=== PATIENT | male | born 1945 | race African-American/Black ===

== ENCOUNTER 2019-07-18 18:29 | Inpatient (IN) ==
[2019-07-18] MEDS ORDERED: LACTATED RINGERS 500 ML IV ONE (19:30)
[2019-07-18 19:36] LABS: Basophils % 0.2 % (0.0-0.8); Hemoglobin 6.6 GM/DL (14.0-18.0)
[2019-07-18 19:52] LABS: Albumin 3.5 G/DL (3.4-5.0); Bilirubin,Total 0.8 MG/DL (0.2-1.0); Calcium 8.7 MG/DL (8.5-10.1); Osmolality,Calculated 385.7 MOS/KG (273-304); Total Protein 10.6 G/DL (6.4-8.3)
[2019-07-18 19:56] LABS: Eosinophils % 0.1 % (0.00-10.9); Hematocrit 29.9 VOL% (42.0-52.0); Immature Granulocytes % 1.5 %; Lymphocytes # 0.3 10*3/uL (1.4-4.0); Lymphocytes % 1.9 % (21.2-54.2); Mean Corpuscular HGB Conc 22.1 GM/DL (32-36); Monocytes % 13.2 % (1.7-12.7); NRBC # 0.32 10*3/uL; Neutrophils % 83.1 % (38.7-73.9); Platelet Count 271 T/CUMM (130-400); Red Blood Count 4.46 MC/CUMM (3.8-5.5); Red Cell Distribution Width 24.4 % (9.3-17.3); White Blood Count 13.5 T/CUMM (4-12)
[2019-07-18 19:59] LABS: Band Neutrophils 14 % (0-10); Lymphocytes 3 % (20-55); Nucleated Red Blood Cells 1 (0-5); Segmented Neutrophils 73 % (50-85); Total Cells Counted 100
[2019-07-18 20:00] LABS: Elliptocytes Few; Hypochromasia 1+
[2019-07-18 20:01] LABS: Anisocytosis 1+; Platelet Estimate Adequate; Polychromasia Few; Target Cells Few
[2019-07-18] MEDS ORDERED: LACTATED RINGERS IV ONE (20:13)
[2019-07-18] MEDS ORDERED: MEROPENEM 1,000 MG in SODIUM CHLORIDE 0.9% 100 ML IV STA (20:14)
[2019-07-18 20:15] LABS: ABG Base Excess -15.4 MMOL/L (-2.5-2.5); ABG HCO3 12.2 MMOL/L (20-26); ABG PCO2 24.3 MM HG (35-48); ABG PH 7.251 (7.35-7.45); ABG PO2 69.9 MM HG (80-95); ABG TCO2 10.4 MMOL/L (23-27); Allen Test Positive
[2019-07-18 20:29] LABS: Apearance,Urine Slightly Hazy (Clear); Bilirubin,Urine Negative (Negative); Blood, Urine Small mg/dL (Negative); Glucose,Urine (UA) >=500 mg/dL (Negative); Hyaline Casts,Urine 16 /LPF (0-3); Ketones,Urine 5 mg/dL (Negative); Mucus,Urine Occasional /LPF (Occasional); Nitrite,Urine Negative (Negative); Protein,Urine 100 MG/DL; RBC,Urine 1 /HPF (0-4); Squamous Epithelial Cell,Urine Occasional /HPF (0-10); Urine Color Yellow (Yellow); Urine Specific Gravity 1.023 (1.001-1.035); Urine Urobilinogen < 2.0 EU/DL (0.2-1.0); WBC,Urine 1 /HPF (0-6)
[2019-07-18] MEDS: INSULIN REGULAR DRIP 100 ML IV PRN (20:56)
[2019-07-18] MEDS ORDERED: MAGNESIUM SULF RIDER 4 GM in PREMIX 1 EACH IV PRN (21:19)
[2019-07-18] MEDS ORDERED: SODIUM BICARB INJ 100 MEQ in STERILE WATER INJ 400 ML IV PRN (21:19)
[2019-07-18] MEDS ORDERED: SODIUM PHOSPHATE INJ 19.3 MMOL in SODIUM CHLORIDE 0.9% 250 ML IV PRN (21:19)
[2019-07-18] MEDS ORDERED: GLUCAGON 1 MG VIAL IM PRN (21:19)
[2019-07-18] MEDS ORDERED: DEXTROSE 10% 250 ML BAG IV PRN ×2 (21:19)
[2019-07-18] MEDS ORDERED: MAGNESIUM SULF RIDER 2 GM in PREMIX 1 EACH IV PRN (21:19)
[2019-07-18] MEDS ORDERED: DEXTROSE 50% 25 GM/50 ML VIAL IV PRN (21:19)
[2019-07-18] MEDS ORDERED: SODIUM CHLORIDE 0.9% 1,000 ML IV SCH ×2 (21:21→23:20)
[2019-07-18] MEDS ORDERED: SODIUM CHLORIDE 0.9% 1,000 ML IV PRN (21:30)
[2019-07-18] MEDS ORDERED: INSULIN REGULAR 100 UNIT/ML IV STA (21:38)
[2019-07-18] MEDS ORDERED: LEVOFLOXACIN INJ 500 MG in PREMIX 1 EACH IV ONE (23:00)
[2019-07-19 01:38] LABS: Calcium 7.8 MG/DL (8.5-10.1); Osmolality,Calculated 375.3 MOS/KG (273-304)
[2019-07-19] MEDS: PIPERACILLIN/TAZOBACTAM 3,375 MG in SODIUM CHLORIDE 0.9% 100 ML IV SCH ×2 (03:40→15:25)
[2019-07-19] MEDS ORDERED: ONDANSETRON 4 MG/2 ML VIAL IV PRN (04:52)
[2019-07-19] MEDS ORDERED: PROMETHAZINE 25 MG/1 ML VIAL IV PRN (04:52)
[2019-07-19] MEDS ORDERED: PROMETHAZINE INJ 25 MG in SODIUM CHLORIDE 0.9% 50 ML IV PRN (05:01)
[2019-07-19] MEDS: SODIUM CHLOR 0.45% KCL 20 MEQ 20 MEQ/1,000 ML BAG IV SCH ×5 (05:06→22:23)
[2019-07-19] MEDS: SODIUM CHLORIDE 0.45% 1,000 ML IV SCH ×4 (05:26→22:24)
[2019-07-19 07:49] LABS: Basophils # 0.1 10*3/uL (0.0-0.2); Basophils % 0.2 % (0.0-0.8); Hematocrit 30.9 VOL% (42.0-52.0); Hemoglobin 8.3 GM/DL (14.0-18.0); Immature Granulocytes % 1.7 %; Immature Granulocytes Absolute 0.69 #; Lymphocytes # 0.6 10*3/uL (1.4-4.0); Lymphocytes % 1.4 % (21.2-54.2); Mean Corpuscular HGB Conc 26.9 GM/DL (32-36); Mean Corpuscular Volume 69.8 FL (87-102); Monocytes % 7.8 % (1.7-12.7); NRBC # 0.38 10*3/uL; Neutrophils % 88.9 % (38.7-73.9); Platelet Count 120 T/CUMM (130-400); Red Blood Count 4.43 MC/CUMM (3.8-5.5); Red Cell Distribution Width 28.4 % (9.3-17.3)
[2019-07-19 07:52] LABS: Calcium 7.6 MG/DL (8.5-10.1); White Blood Count 41.8 T/CUMM (4-12)
[2019-07-19 08:10] LABS: Band Neutrophils 11 % (0-10); Hypochromasia 1+; Lymphocytes 3 % (20-55); Ovalocytes Slight; Segmented Neutrophils 78 % (50-85); Total Cells Counted 100
[2019-07-19 08:37] LABS: Hematocrit 31.2 VOL% (42.0-52.0); Hemoglobin 8.3 GM/DL (14.0-18.0)
[2019-07-19 14:17] LABS: Calcium 7.5 MG/DL (8.5-10.1); Osmolality,Calculated 363.9 MOS/KG (273-304)
[2019-07-19] MEDS ORDERED: AMIODARONE INJ 150 MG in DEXTROSE 5% 100 ML IV ONE (14:30)
[2019-07-19] MEDS ORDERED: AMIODARONE INJ 450 MG in DEXTROSE 5% 241 ML IV SCH ×2 (15:30→21:30)
[2019-07-19] MEDS: LORazepam 2 MG/1 ML VIAL IV PRN (16:33)
[2019-07-19 19:45] LABS: Calcium 7.1 MG/DL (8.5-10.1)
[2019-07-19] MEDS: INSULIN REGULAR DRIP 100 ML IV PRN (20:40)
[2019-07-19] MEDS: PANTOPRAZOLE 40 MG VIAL IV SCH (20:47)
[2019-07-19] MEDS: SUCRALFATE 1 GM TABLET PO SCH (21:01)
[2019-07-20 00:39] LABS: Calcium 6.9 MG/DL (8.5-10.1)
[2019-07-20] MEDS: PIPERACILLIN/TAZOBACTAM 3,375 MG in SODIUM CHLORIDE 0.9% 100 ML IV SCH (03:01)
[2019-07-20] MEDS: DEXT 5% NACL 0.45% KCL 20 MEQ 20 MEQ/1,000 ML BAG IV SCH ×2 (03:30→12:08)
[2019-07-20] MEDS: SODIUM CHLOR 0.45% KCL 20 MEQ 20 MEQ/1,000 ML BAG IV SCH ×2 (03:49→09:17)
[2019-07-20] MEDS: SODIUM CHLORIDE 0.45% 1,000 ML IV SCH ×2 (03:49→12:08)
[2019-07-20 04:29] LABS: Calcium 7.6 MG/DL (8.5-10.1); Osmolality,Calculated 344.9 MOS/KG (273-304)
[2019-07-20 04:59] LABS: Basophils # 0.1 10*3/uL (0.0-0.2); Basophils % 0.2 % (0.0-0.8); Hematocrit 26.3 VOL% (42.0-52.0); Hemoglobin 7.1 GM/DL (14.0-18.0); Immature Granulocytes % 4.9 %; Immature Granulocytes Absolute 2.04 #; Lymphocytes # 0.6 10*3/uL (1.4-4.0); Lymphocytes % 1.5 % (21.2-54.2); Mean Corpuscular Volume 68.5 FL (87-102); Monocytes % 5.5 % (1.7-12.7); NRBC # 0.34 10*3/uL; Neutrophils % 87.9 % (38.7-73.9); Red Blood Count 3.84 MC/CUMM (3.8-5.5); Red Cell Distribution Width 26.5 % (9.3-17.3)
[2019-07-20 05:00] LABS: Platelet Count 93 T/CUMM (130-400)
[2019-07-20] MEDS ORDERED: DEXTROSE 5% KCL 20 MEQ 20 MEQ/1,000 ML BAG IV SCH (05:00)
[2019-07-20 05:03] LABS: White Blood Count 41.5 T/CUMM (4-12)
[2019-07-20 05:04] LABS: Band Neutrophils 14 % (0-10); Eosinophils 1 % (0-10); Lymphocytes 1 % (20-55); Metamyelocytes 1 %; Myelocytes 2 %; Nucleated Red Blood Cells 1 (0-5); Segmented Neutrophils 77 % (50-85); Total Cells Counted 100
[2019-07-20 05:05] LABS: Hypochromasia 1+; Platelet Estimate Decreased
[2019-07-20] MEDS ORDERED: SODIUM CHLORIDE 0.9% 1,000 ML IV PRN (05:50)
[2019-07-20 08:56] LABS: Calcium 7.8 MG/DL (8.5-10.1)
[2019-07-20] MEDS: PANTOPRAZOLE 40 MG VIAL IV SCH ×2 (09:18→22:38)
[2019-07-20] MEDS: SUCRALFATE 1 GM TABLET PO SCH ×2 (09:19→12:37)
[2019-07-20 12:31] LABS: Apearance,Urine CLOUDY (Clear); Bacteria,Urine Occasional /HPF (Few); Bilirubin,Urine Negative (Negative); Blood, Urine Large mg/dL (Negative); Glucose,Urine (UA) Negative (Negative); Ketones,Urine Negative (Negative); Nitrite,Urine Negative (Negative); Protein,Urine >=500 MG/DL; RBC,Urine 24 /HPF (0-4); Urine Color Yellow (Yellow); Urine Specific Gravity 1.016 (1.001-1.035); Urine Urobilinogen < 2.0 EU/DL (0.2-1.0); WBC,Urine 11 /HPF (0-6)
[2019-07-20] MEDS: SUCRALFATE 1 GM/10 ML UDCUP NG SCH ×3 (12:35→22:38)
[2019-07-20] MEDS: ACETAMINOPHEN 325 MG/10.15 ML UDCUP PO PRN ×2 (12:36→22:45)
[2019-07-20] MEDS: SODIUM BICARB INJ 50 MEQ in DEXTROSE 5% 1,000 ML IV SCH ×2 (13:05→21:30)
[2019-07-20] MEDS: CLOTRIMAZOLE/BETAMETHASONE CREAM 15 GM TUBE TOP SCH ×3 (13:05→22:38)
[2019-07-20] MEDS: BUDESONIDE 0.5 MG/2 ML NEB RESP TX SCH ×2 (13:19→19:47)
[2019-07-20] MEDS ORDERED: FLUCONAZOLE 40 MG/ML 35 ML/BOTTLE PO ONE (14:00)
[2019-07-20] MEDS: MEROPENEM 500 MG in SODIUM CHLORIDE 0.9% 100 ML IV SCH ×2 (14:43→22:38)
[2019-07-20 17:11] LABS: Calcium 7.5 MG/DL (8.5-10.1); Osmolality,Calculated 335.2 MOS/KG (273-304)
[2019-07-20 17:24] LABS: Basophils # 0.1 10*3/uL (0.0-0.2); Basophils % 0.2 % (0.0-0.8); Immature Granulocytes % 1.8 %; Immature Granulocytes Absolute 0.82 #; Lymphocytes # 0.7 10*3/uL (1.4-4.0); Lymphocytes % 1.5 % (21.2-54.2); Mean Corpuscular HGB Conc 28.6 GM/DL (32-36); Mean Corpuscular Volume 69.7 FL (87-102); Monocytes % 3.7 % (1.7-12.7); Neutrophils % 92.8 % (38.7-73.9); Platelet Count 51 T/CUMM (130-400); Red Blood Count 4.02 MC/CUMM (3.8-5.5); Red Cell Distribution Width 26.5 % (9.3-17.3)
[2019-07-20 17:25] LABS: White Blood Count 44.5 T/CUMM (4-12)
[2019-07-20 17:51] LABS: Band Neutrophils 32 % (0-10); Lymphocytes 3 % (20-55); Metamyelocytes 8 %; Nucleated Red Blood Cells 1 (0-5); Segmented Neutrophils 54 % (50-85); Total Cells Counted 100
[2019-07-20 17:52] LABS: Anisocytosis 2+; Elliptocytes Few; Macrocytosis Slight; Microcytosis 2+; Platelet Estimate Decreased; Polychromasia 1+; Target Cells 1+
[2019-07-20 17:53] LABS: Burr Cells Slight; Hypochromasia 1+; Poikilocytosis 1+
[2019-07-20] MEDS: INSULIN REGULAR DRIP 100 ML IV PRN (19:07)
[2019-07-20] MEDS: METOPROLOL TARTRATE 5 MG/5 ML VIAL IV PRN (20:15)
[2019-07-20] MEDS: LORazepam 2 MG/1 ML VIAL IV PRN (21:25)
[2019-07-20] MEDS ORDERED: LEVOFLOXACIN INJ 250 MG in PREMIX 1 EACH IV SCH (23:00)
[2019-07-21] MEDS ORDERED: IBUPROFEN 100 MG/5 ML UDCUP PO PRN (01:33)
[2019-07-21 02:57] LABS: Calcium 7.6 MG/DL (8.5-10.1); Osmolality,Calculated 334.2 MOS/KG (273-304)
[2019-07-21 03:02] LABS: Prealbumin 3.7 MG/DL (20-40)
[2019-07-21 03:47] LABS: Basophils # 0.2 10*3/uL (0.0-0.2); Basophils % 0.3 % (0.0-0.8); Hematocrit 32.5 VOL% (42.0-52.0); Hemoglobin 9.2 GM/DL (14.0-18.0); Immature Granulocytes % 1.4 %; Immature Granulocytes Absolute 0.66 #; Lymphocytes # 0.8 10*3/uL (1.4-4.0); Lymphocytes % 1.7 % (21.2-54.2); Mean Corpuscular HGB Conc 28.3 GM/DL (32-36); Mean Corpuscular Volume 70.7 FL (87-102); Monocytes % 3.3 % (1.7-12.7); NRBC # 0.28 10*3/uL; Neutrophils % 93.3 % (38.7-73.9); Platelet Count 45 T/CUMM (130-400); Red Cell Distribution Width 26.5 % (9.3-17.3)
[2019-07-21 03:53] LABS: White Blood Count 48.3 T/CUMM (4-12)
[2019-07-21 04:00] LABS: Band Neutrophils 6 % (0-10); Eosinophils 1 % (0-10); Lymphocytes 5 % (20-55); Metamyelocytes 6 %; Myelocytes 3 %; Nucleated Red Blood Cells 1 (0-5); Segmented Neutrophils 77 % (50-85)
[2019-07-21 04:02] LABS: Elliptocytes 1+; Hypochromasia 1+; Platelet Estimate Decreased; Target Cells Few
[2019-07-21 04:08] LABS: Microcytosis 1+; Total Cells Counted 100
[2019-07-21] MEDS: SODIUM BICARB INJ 50 MEQ in DEXTROSE 5% 1,000 ML IV SCH ×3 (06:03→23:30)
[2019-07-21] MEDS: MEROPENEM 500 MG in SODIUM CHLORIDE 0.9% 100 ML IV SCH ×3 (06:03→21:54)
[2019-07-21] MEDS: SUCRALFATE 1 GM/10 ML UDCUP NG SCH ×4 (07:54→21:54)
[2019-07-21] MEDS: BUDESONIDE 0.5 MG/2 ML NEB RESP TX SCH ×2 (07:58→20:49)
[2019-07-21] MEDS: FLUCONAZOLE INJ 200 MG in PREMIX 1 EACH IV SCH (09:17)
[2019-07-21] MEDS: CLOTRIMAZOLE/BETAMETHASONE CREAM 15 GM TUBE TOP SCH ×2 (09:18→21:54)
[2019-07-21] MEDS: PANTOPRAZOLE 40 MG VIAL IV SCH ×2 (09:18→21:55)
[2019-07-21] MEDS: METOPROLOL TARTRATE 5 MG/5 ML VIAL IV PRN ×2 (10:06→14:56)
[2019-07-21] MEDS: INSULIN REGULAR DRIP 100 ML IV PRN (11:52)
[2019-07-21] MEDS ORDERED: DEXTROSE 10% 25 GM/250 ML BAG IV PRN (13:50)
[2019-07-21] MEDS: POTASSIUM CHLORIDE RIDER 10 MEQ in PREMIX 1 EACH IV PRN ×2 (16:15→17:46)
[2019-07-21] MEDS ORDERED: FUROSEMIDE 40 MG/4 ML VIAL IV ONE (16:33)
[2019-07-21] MEDS ORDERED: hydrALAZINE 20 MG/1 ML VIAL IV ONE (16:50)
[2019-07-21] MEDS: DEXTROSE 5% 1,000 ML IV SCH ×2 (17:01→23:30)
[2019-07-21] MEDS: INSULIN REGULAR 100 UNIT/ML SUBCUT SCH (18:08)
[2019-07-21] MEDS: FUROSEMIDE 40 MG/4 ML VIAL IV SCH (19:38)
[2019-07-22] MEDS: INSULIN REGULAR 100 UNIT/ML SUBCUT SCH ×6 (01:06→23:43)
[2019-07-22 02:56] LABS: Basophils # 0.1 10*3/uL (0.0-0.2); Basophils % 0.2 % (0.0-0.8); Hemoglobin 9.1 GM/DL (14.0-18.0); Immature Granulocytes % 2.4 %; Immature Granulocytes Absolute 0.89 #; Lymphocytes # 1.4 10*3/uL (1.4-4.0); Lymphocytes % 3.6 % (21.2-54.2); Mean Corpuscular HGB Conc 28.7 GM/DL (32-36); Mean Corpuscular Volume 69.4 FL (87-102); Monocytes % 0.8 % (1.7-12.7); NRBC # 0.39 10*3/uL; Red Blood Count 4.57 MC/CUMM (3.8-5.5); Red Cell Distribution Width 27.2 % (9.3-17.3); White Blood Count 37.7 T/CUMM (4-12)
[2019-07-22 03:18] LABS: Calcium 7.4 MG/DL (8.5-10.1)
[2019-07-22 03:33] LABS: Hematocrit 31.7 VOL% (42.0-52.0); Platelet Count 38 T/CUMM (130-400)
[2019-07-22 03:36] LABS: Band Neutrophils 2 % (0-10); Hypochromasia 1+; Lymphocytes 8 % (20-55); Microcytosis 1+; Platelet Estimate Decreased; Polychromasia Few; Segmented Neutrophils 90 % (50-85); Total Cells Counted 100
[2019-07-22 04:19] LABS: Calcium 7.2 MG/DL (8.5-10.1); Osmolality,Calculated 332.7 MOS/KG (273-304)
[2019-07-22] MEDS ORDERED: INSULIN REGULAR 100 UNIT/ML IV ONE (04:27)
[2019-07-22] MEDS: MEROPENEM 500 MG in SODIUM CHLORIDE 0.9% 100 ML IV SCH (06:20)
[2019-07-22] MEDS: BUDESONIDE 0.5 MG/2 ML NEB RESP TX SCH ×2 (07:06→20:30)
[2019-07-22] MEDS: FUROSEMIDE 40 MG/4 ML VIAL IV SCH ×2 (08:38→17:08)
[2019-07-22] MEDS: SODIUM BICARB INJ 50 MEQ in DEXTROSE 5% 1,000 ML IV SCH (08:38)
[2019-07-22] MEDS: PANTOPRAZOLE 40 MG VIAL IV SCH ×2 (08:39→21:51)
[2019-07-22] MEDS: FLUCONAZOLE INJ 200 MG in PREMIX 1 EACH IV SCH (08:39)
[2019-07-22] MEDS: SUCRALFATE 1 GM/10 ML UDCUP NG SCH ×4 (08:39→21:51)
[2019-07-22] MEDS: CLOTRIMAZOLE/BETAMETHASONE CREAM 15 GM TUBE TOP SCH ×2 (08:40→21:51)
[2019-07-22] MEDS ORDERED: ACETAMINOPHEN 325 MG TABLET PO PRN (12:35)
[2019-07-22] MEDS: GLIMEPIRIDE 4 MG TABLET PO SCH (13:37)
[2019-07-22] MEDS: POLYETHYLENE GLYCOL POWDER 17 GM PACK PO SCH (13:37)
[2019-07-22] MEDS: DOCUSATE SODIUM 100 MG CAPSULE PO SCH (13:37)
[2019-07-22] MEDS: MULTIVITAMIN (CENTRUM) TABLET PO SCH (13:37)
[2019-07-22] MEDS: LEVOFLOXACIN INJ 750 MG in PREMIX 1 EACH IV SCH (13:37)
[2019-07-22] MEDS: POTASSIUM CHLORIDE INJ 20 MEQ in LACTATED RINGERS 1,000 ML IV SCH ×2 (13:38→23:55)
[2019-07-22 15:16] LABS: Calcium 7.4 MG/DL (8.5-10.1); Osmolality,Calculated 324.6 MOS/KG (273-304)
[2019-07-22] MEDS: methylPREDNISolone SOD SUC 40 MG/1 ML VIAL IV SCH (20:50)
[2019-07-22] MEDS: INSULIN GLARGINE 100 UNIT/ML SUBCUT SCH (21:51)
[2019-07-23] MEDS: CLINDAMYCIN 300 MG CAPSULE PO SCH ×4 (01:15→18:22)
[2019-07-23] MEDS: INSULIN REGULAR 100 UNIT/ML SUBCUT SCH ×6 (02:49→21:21)
[2019-07-23 03:02] LABS: Basophils % 0.1 % (0.0-0.8); Hematocrit 27.2 VOL% (42.0-52.0); Hemoglobin 7.9 GM/DL (14.0-18.0); Immature Granulocytes % 4.4 %; Immature Granulocytes Absolute 0.58 #; Lymphocytes # 0.4 10*3/uL (1.4-4.0); Lymphocytes % 3.2 % (21.2-54.2); Mean Corpuscular Volume 67.5 FL (87-102); Monocytes % 2.6 % (1.7-12.7); NRBC # 0.24 10*3/uL; Neutrophils % 89.7 % (38.7-73.9); Red Blood Count 4.03 MC/CUMM (3.8-5.5); Red Cell Distribution Width 27.2 % (9.3-17.3); White Blood Count 13.3 T/CUMM (4-12)
[2019-07-23 03:05] LABS: Platelet Count 28 T/CUMM (130-400)
[2019-07-23 03:11] LABS: Calcium 7.4 MG/DL (8.5-10.1); Osmolality,Calculated 312.7 MOS/KG (273-304)
[2019-07-23 03:54] LABS: Band Neutrophils 5 % (0-10); Lymphocytes 3 % (20-55); Myelocytes 1 %; Nucleated Red Blood Cells 4 (0-5); Segmented Neutrophils 90 % (50-85); Total Cells Counted 100
[2019-07-23 03:55] LABS: Acanthocytes 1+; Anisocytosis 1+; Hypochromasia 1+; Platelet Estimate Decreased; Target Cells 2+
[2019-07-23] MEDS: BUDESONIDE 0.5 MG/2 ML NEB RESP TX SCH ×2 (07:17→19:51)
[2019-07-23] MEDS: FUROSEMIDE 40 MG/4 ML VIAL IV SCH ×2 (07:55→15:58)
[2019-07-23] MEDS: SUCRALFATE 1 GM/10 ML UDCUP NG SCH ×4 (07:55→21:24)
[2019-07-23] MEDS: methylPREDNISolone SOD SUC 40 MG/1 ML VIAL IV SCH ×2 (07:55→21:23)
[2019-07-23] MEDS: POTASSIUM CHLORIDE INJ 20 MEQ in LACTATED RINGERS 1,000 ML IV SCH ×2 (07:56→16:01)
[2019-07-23] MEDS: PANTOPRAZOLE 40 MG VIAL IV SCH ×2 (08:37→21:20)
[2019-07-23] MEDS: DOCUSATE SODIUM 100 MG CAPSULE PO SCH (08:37)
[2019-07-23] MEDS: MULTIVITAMIN (CENTRUM) TABLET PO SCH (08:37)
[2019-07-23] MEDS: GLIMEPIRIDE 4 MG TABLET PO SCH (08:37)
[2019-07-23] MEDS: POLYETHYLENE GLYCOL POWDER 17 GM PACK PO SCH (08:37)
[2019-07-23] MEDS: CLOTRIMAZOLE/BETAMETHASONE CREAM 15 GM TUBE TOP SCH ×2 (08:38→21:24)
[2019-07-23] MEDS: FLUCONAZOLE INJ 200 MG in PREMIX 1 EACH IV SCH (09:10)
[2019-07-23] MEDS ORDERED: SODIUM CHLORIDE 0.9% 1,000 ML IV PRN ×2 (12:36→12:37)
[2019-07-23] MEDS: METOPROLOL TARTRATE 5 MG/5 ML VIAL IV PRN (16:45)
[2019-07-23] MEDS: LORazepam 2 MG/1 ML VIAL IV PRN (17:35)
[2019-07-23 20:32] LABS: Basophils % 0.2 % (0.0-0.8); Eosinophils % 0.1 % (0.00-10.9); Hemoglobin 8.7 GM/DL (14.0-18.0); Immature Granulocytes Absolute 1.08 #; Lymphocytes # 0.6 10*3/uL (1.4-4.0); Lymphocytes % 5.3 % (21.2-54.2); Mean Corpuscular Volume 69.3 FL (87-102); Monocytes % 6.6 % (1.7-12.7); NRBC # 0.43 10*3/uL; Neutrophils % 77.8 % (38.7-73.9); Platelet Count 97 T/CUMM (130-400); Red Blood Count 4.33 MC/CUMM (3.8-5.5); White Blood Count 10.8 T/CUMM (4-12)
[2019-07-23 20:57] LABS: Band Neutrophils 1 % (0-10); Hypochromasia 2+; Lymphocytes 12 % (20-55); Metamyelocytes 3 %; Myelocytes 4 %; Nucleated Red Blood Cells 1 (0-5); Platelet Estimate Adequate; Segmented Neutrophils 78 % (50-85); Total Cells Counted 100
[2019-07-23 20:58] LABS: Anisocytosis Slight; Microcytosis 3+; Polychromasia 1+; Schistocytes 2+
[2019-07-23] MEDS: INSULIN GLARGINE 100 UNIT/ML SUBCUT SCH (21:22)
[2019-07-24] MEDS: CLINDAMYCIN 300 MG CAPSULE PO SCH ×5 (00:35→23:32)
[2019-07-24] MEDS: POTASSIUM CHLORIDE INJ 20 MEQ in LACTATED RINGERS 1,000 ML IV SCH ×4 (00:51→21:13)
[2019-07-24 01:47] LABS: Basophils % 0.1 % (0.0-0.8); Hematocrit 25.7 VOL% (42.0-52.0); Hemoglobin 7.4 GM/DL (14.0-18.0); Immature Granulocytes % 6.2 %; Immature Granulocytes Absolute 0.87 #; Lymphocytes # 0.5 10*3/uL (1.4-4.0); Lymphocytes % 3.7 % (21.2-54.2); Mean Corpuscular HGB Conc 28.8 GM/DL (32-36); Mean Corpuscular Volume 68.9 FL (87-102); Monocytes % 8.5 % (1.7-12.7); NRBC # 0.33 10*3/uL; Neutrophils % 81.5 % (38.7-73.9); Platelet Count 111 T/CUMM (130-400); Red Blood Count 3.73 MC/CUMM (3.8-5.5); Red Cell Distribution Width 28.6 % (9.3-17.3); White Blood Count 13.9 T/CUMM (4-12)
[2019-07-24 02:01] LABS: Calcium 7.6 MG/DL (8.5-10.1); Osmolality,Calculated 318.3 MOS/KG (273-304)
[2019-07-24] MEDS: INSULIN REGULAR 100 UNIT/ML SUBCUT SCH ×6 (02:34→23:31)
[2019-07-24 03:16] LABS: Anisocytosis 1+; Band Neutrophils 6 % (0-10); Lymphocytes 12 % (20-55); Microcytosis 3+; Nucleated Red Blood Cells 4 (0-5); Platelet Estimate Adequate; Segmented Neutrophils 76 % (50-85); Total Cells Counted 100
[2019-07-24 03:17] LABS: Hypochromasia 3+; Target Cells 1+
[2019-07-24 03:18] LABS: Polychromasia Few
[2019-07-24] MEDS: BUDESONIDE 0.5 MG/2 ML NEB RESP TX SCH ×2 (08:13→20:50)
[2019-07-24] MEDS: PANTOPRAZOLE 40 MG VIAL IV SCH ×2 (08:38→21:06)
[2019-07-24] MEDS: POLYETHYLENE GLYCOL POWDER 17 GM PACK PO SCH (08:38)
[2019-07-24] MEDS: methylPREDNISolone SOD SUC 40 MG/1 ML VIAL IV SCH ×2 (08:38→21:03)
[2019-07-24] MEDS: FUROSEMIDE 40 MG/4 ML VIAL IV SCH ×2 (08:39→16:19)
[2019-07-24] MEDS: SUCRALFATE 1 GM/10 ML UDCUP NG SCH ×4 (08:39→21:02)
[2019-07-24] MEDS: MULTIVITAMIN (CENTRUM) TABLET PO SCH (08:39)
[2019-07-24] MEDS: GLIMEPIRIDE 4 MG TABLET PO SCH (08:39)
[2019-07-24] MEDS: FLUCONAZOLE INJ 200 MG in PREMIX 1 EACH IV SCH (08:40)
[2019-07-24] MEDS: DOCUSATE SODIUM 100 MG CAPSULE PO SCH (08:40)
[2019-07-24] MEDS: CLOTRIMAZOLE/BETAMETHASONE CREAM 15 GM TUBE TOP SCH ×2 (08:42→21:09)
[2019-07-24] MEDS ORDERED: FUROSEMIDE 40 MG/4 ML VIAL IV ONE (12:34)
[2019-07-24] MEDS ORDERED: POTASSIUM CHLORIDE INJ 20 MEQ in LACTATED RINGERS 1,000 ML IV SCH (13:00)
[2019-07-24] MEDS: LEVOFLOXACIN INJ 750 MG in PREMIX 1 EACH IV SCH (13:02)
[2019-07-24] MEDS: LORazepam 2 MG/1 ML VIAL IV PRN (13:34)
[2019-07-24] MEDS: METOPROLOL TARTRATE 5 MG/5 ML VIAL IV PRN (15:06)
[2019-07-24] MEDS: INSULIN GLARGINE 100 UNIT/ML SUBCUT SCH (21:01)
[2019-07-24] MEDS: METOPROLOL TARTRATE 25 MG TABLET NG SCH (21:02)
[2019-07-25] MEDS: INSULIN REGULAR 100 UNIT/ML SUBCUT SCH ×6 (02:03→21:11)
[2019-07-25] MEDS: POTASSIUM CHLORIDE INJ 20 MEQ in LACTATED RINGERS 1,000 ML IV SCH ×3 (02:56→13:47)
[2019-07-25] MEDS: CLINDAMYCIN 300 MG CAPSULE PO SCH ×3 (06:29→17:44)
[2019-07-25] MEDS: BUDESONIDE 0.5 MG/2 ML NEB RESP TX SCH ×2 (07:30→20:20)
[2019-07-25] MEDS: SUCRALFATE 1 GM/10 ML UDCUP NG SCH ×4 (08:13→21:00)
[2019-07-25] MEDS: methylPREDNISolone SOD SUC 40 MG/1 ML VIAL IV SCH ×2 (08:13→20:58)
[2019-07-25] MEDS: FUROSEMIDE 40 MG/4 ML VIAL IV SCH ×2 (08:14→16:26)
[2019-07-25] MEDS: GLIMEPIRIDE 4 MG TABLET PO SCH (09:10)
[2019-07-25] MEDS: DOCUSATE SODIUM 100 MG CAPSULE PO SCH (09:10)
[2019-07-25] MEDS: POLYETHYLENE GLYCOL POWDER 17 GM PACK PO SCH (09:10)
[2019-07-25] MEDS: METOPROLOL TARTRATE 25 MG TABLET NG SCH ×2 (09:10→21:00)
[2019-07-25] MEDS: MULTIVITAMIN (CENTRUM) TABLET PO SCH (09:10)
[2019-07-25] MEDS: PANTOPRAZOLE 40 MG VIAL IV SCH ×2 (09:11→20:59)
[2019-07-25] MEDS: FLUCONAZOLE INJ 200 MG in PREMIX 1 EACH IV SCH (09:11)
[2019-07-25] MEDS: CLOTRIMAZOLE/BETAMETHASONE CREAM 15 GM TUBE TOP SCH ×2 (09:12→21:02)
[2019-07-25 13:58] LABS: Calcium 7.4 MG/DL (8.5-10.1); Osmolality,Calculated 312.1 MOS/KG (273-304)
[2019-07-25 14:08] LABS: Basophils % 0.1 % (0.0-0.8); Hematocrit 27.4 VOL% (42.0-52.0); Lymphocytes # 0.5 10*3/uL (1.4-4.0); Lymphocytes % 2.5 % (21.2-54.2); Mean Corpuscular HGB Conc 27.7 GM/DL (32-36)
[2019-07-25 14:32] LABS: Immature Granulocytes % 2.8 %; Immature Granulocytes Absolute 0.59 #; Mean Corpuscular Volume 71.4 FL (87-102); Monocytes % 4.9 % (1.7-12.7); NRBC # 0.11 10*3/uL; Neutrophils % 89.7 % (38.7-73.9); Platelet Count 112 T/CUMM (130-400); Red Blood Count 3.84 MC/CUMM (3.8-5.5); Red Cell Distribution Width 30.2 % (9.3-17.3); White Blood Count 20.8 T/CUMM (4-12)
[2019-07-25 14:34] LABS: Hemoglobin 7.6 GM/DL (14.0-18.0)
[2019-07-25 15:22] LABS: Band Neutrophils 7 % (0-10); Lymphocytes 4 % (20-55); Segmented Neutrophils 88 % (50-85); Total Cells Counted 100
[2019-07-25 15:23] LABS: Hypochromasia 1+; Polychromasia Slight
[2019-07-25 15:25] LABS: Platelet Estimate Adequate
[2019-07-25 15:26] LABS: Microcytosis 1+; Schistocytes Slight
[2019-07-25] MEDS ORDERED: POTASSIUM CHLORIDE INJ 20 MEQ in LACTATED RINGERS 1,000 ML IV SCH (17:30)
[2019-07-25] MEDS: INSULIN GLARGINE 100 UNIT/ML SUBCUT SCH (20:59)
[2019-07-26] MEDS: CLINDAMYCIN 300 MG CAPSULE PO SCH ×5 (00:55→23:04)
[2019-07-26] MEDS: INSULIN REGULAR 100 UNIT/ML SUBCUT SCH ×6 (01:06→23:02)
[2019-07-26] MEDS: POTASSIUM CHLORIDE INJ 20 MEQ in LACTATED RINGERS 1,000 ML IV SCH (02:19)
[2019-07-26 02:46] LABS: Basophils % 0.1 % (0.0-0.8); Hematocrit 26.3 VOL% (42.0-52.0); Immature Granulocytes Absolute 0.77 #; Lymphocytes # 0.4 10*3/uL (1.4-4.0); Lymphocytes % 1.5 % (21.2-54.2); Mean Corpuscular HGB Conc 28.1 GM/DL (32-36); Mean Corpuscular Volume 71.3 FL (87-102); Monocytes % 3.8 % (1.7-12.7); NRBC # 0.07 10*3/uL; Neutrophils % 91.6 % (38.7-73.9); Platelet Count 83 T/CUMM (130-400); Red Blood Count 3.69 MC/CUMM (3.8-5.5); Red Cell Distribution Width 30.3 % (9.3-17.3)
[2019-07-26 03:04] LABS: Hemoglobin 7.5 GM/DL (14.0-18.0)
[2019-07-26 03:07] LABS: Prealbumin 9.3 MG/DL (20-40)
[2019-07-26 03:55] LABS: Band Neutrophils 9 % (0-10); Lymphocytes 3 % (20-55); Nucleated Red Blood Cells 1 (0-5); Segmented Neutrophils 84 % (50-85); Total Cells Counted 100
[2019-07-26 03:56] LABS: Anisocytosis 1+; Hypochromasia 1+; Platelet Estimate Decreased; Target Cells Few; Tear Drop Cells Few
[2019-07-26] MEDS: BUDESONIDE 0.5 MG/2 ML NEB RESP TX SCH ×2 (08:27→19:21)
[2019-07-26] MEDS: PANTOPRAZOLE 40 MG VIAL IV SCH ×2 (09:39→22:42)
[2019-07-26] MEDS: methylPREDNISolone SOD SUC 40 MG/1 ML VIAL IV SCH ×3 (09:39→22:38)
[2019-07-26] MEDS: FUROSEMIDE 40 MG/4 ML VIAL IV SCH ×2 (09:39→17:11)
[2019-07-26] MEDS: GLIMEPIRIDE 4 MG TABLET PO SCH ×2 (09:39→17:11)
[2019-07-26] MEDS: MULTIVITAMIN LIQUID (CENTRUM) 60 ML BOTTLE PO SCH (09:40)
[2019-07-26] MEDS: DOCUSATE SODIUM 100 MG CAPSULE PO SCH (09:40)
[2019-07-26] MEDS: SUCRALFATE 1 GM/10 ML UDCUP NG SCH ×4 (09:40→22:37)
[2019-07-26] MEDS: POLYETHYLENE GLYCOL POWDER 17 GM PACK PO SCH (09:40)
[2019-07-26] MEDS: METOPROLOL TARTRATE 25 MG TABLET NG SCH ×2 (09:40→20:45)
[2019-07-26] MEDS: CLOTRIMAZOLE/BETAMETHASONE CREAM 15 GM TUBE TOP SCH ×2 (09:41→22:47)
[2019-07-26] MEDS: FLUCONAZOLE INJ 200 MG in PREMIX 1 EACH IV SCH (10:16)
[2019-07-26] MEDS: cefTRIAXone 1,000 MG in SYRINGE 1 EACH IV SCH (11:21)
[2019-07-26] MEDS: INSULIN GLARGINE 100 UNIT/ML SUBCUT SCH (22:41)
[2019-07-27] MEDS: INSULIN REGULAR 100 UNIT/ML SUBCUT SCH ×6 (03:08→22:49)
[2019-07-27 05:51] LABS: Basophils % 0.1 % (0.0-0.8); Hematocrit 28.5 VOL% (42.0-52.0); Immature Granulocytes % 2.2 %; Immature Granulocytes Absolute 0.65 #; Lymphocytes # 0.6 10*3/uL (1.4-4.0); Lymphocytes % 1.9 % (21.2-54.2); Mean Corpuscular HGB Conc 28.1 GM/DL (32-36); Mean Corpuscular Volume 71.3 FL (87-102); NRBC # 0.05 10*3/uL; Neutrophils % 90.8 % (38.7-73.9); Platelet Count 127 T/CUMM (130-400); Red Cell Distribution Width 30.8 % (9.3-17.3); White Blood Count 30.2 T/CUMM (4-12)
[2019-07-27 06:12] LABS: Albumin 1.6 G/DL (3.4-5.0); Bilirubin,Total 0.7 MG/DL (0.2-1.0); Osmolality,Calculated 311.6 MOS/KG (273-304); Total Protein 7.6 G/DL (6.4-8.3)
[2019-07-27] MEDS: CLINDAMYCIN 300 MG CAPSULE PO SCH ×3 (06:14→17:08)
[2019-07-27 06:25] LABS: Band Neutrophils 3 % (0-10); Hypochromasia 1+; Lymphocytes 2 % (20-55); Nucleated Red Blood Cells 1 (0-5); Ovalocytes Slight; Segmented Neutrophils 89 % (50-85); Target Cells Few; Total Cells Counted 100
[2019-07-27] MEDS: BUDESONIDE 0.5 MG/2 ML NEB RESP TX SCH ×2 (07:22→19:27)
[2019-07-27] MEDS: methylPREDNISolone SOD SUC 40 MG/1 ML VIAL IV SCH ×2 (09:04→21:20)
[2019-07-27] MEDS: SUCRALFATE 1 GM/10 ML UDCUP NG SCH ×4 (09:05→21:23)
[2019-07-27] MEDS: POLYETHYLENE GLYCOL POWDER 17 GM PACK PO SCH (09:05)
[2019-07-27] MEDS: FLUCONAZOLE 40 MG/ML 35 ML/BOTTLE PER TUBE SCH (09:06)
[2019-07-27] MEDS: DOCUSATE SODIUM 100 MG CAPSULE PO SCH (09:06)
[2019-07-27] MEDS: FUROSEMIDE 40 MG/4 ML VIAL IV SCH ×2 (09:10→15:16)
[2019-07-27] MEDS: GLIMEPIRIDE 4 MG TABLET PO SCH ×2 (09:11→17:08)
[2019-07-27] MEDS: PANTOPRAZOLE 40 MG VIAL IV SCH ×2 (09:17→21:22)
[2019-07-27] MEDS: MULTIVITAMIN LIQUID (CENTRUM) 60 ML BOTTLE PO SCH (09:17)
[2019-07-27] MEDS: METOPROLOL TARTRATE 25 MG TABLET NG SCH ×2 (09:17→21:23)
[2019-07-27] MEDS: CLOTRIMAZOLE/BETAMETHASONE CREAM 15 GM TUBE TOP SCH ×2 (09:19→21:24)
[2019-07-27] MEDS: cefTRIAXone 1,000 MG in SYRINGE 1 EACH IV SCH (11:41)
[2019-07-27] MEDS: INSULIN GLARGINE 100 UNIT/ML SUBCUT SCH (21:23)
[2019-07-28] MEDS: INSULIN REGULAR 100 UNIT/ML SUBCUT SCH ×6 (01:36→22:06)
[2019-07-28] MEDS: CLINDAMYCIN 300 MG CAPSULE PO SCH ×5 (01:36→23:57)
[2019-07-28 05:12] LABS: Calcium 7.8 MG/DL (8.5-10.1); Osmolality,Calculated 314.7 MOS/KG (273-304)
[2019-07-28 05:50] LABS: Basophils # 0.1 10*3/uL (0.0-0.2); Basophils % 0.2 % (0.0-0.8); Hematocrit 28.5 VOL% (42.0-52.0); Immature Granulocytes % 1.8 %; Immature Granulocytes Absolute 0.57 #; Lymphocytes # 0.4 10*3/uL (1.4-4.0); Lymphocytes % 1.3 % (21.2-54.2); Mean Corpuscular HGB Conc 28.1 GM/DL (32-36); Monocytes % 3.1 % (1.7-12.7); Neutrophils % 93.6 % (38.7-73.9); Platelet Count 98 T/CUMM (130-400); Red Blood Count 3.96 MC/CUMM (3.8-5.5); Red Cell Distribution Width 31.2 % (9.3-17.3); White Blood Count 32.2 T/CUMM (4-12)
[2019-07-28 05:54] LABS: Band Neutrophils 1 % (0-10); Hypochromasia 1+; Lymphocytes 2 % (20-55); Platelet Estimate Decreased; Segmented Neutrophils 94 % (50-85); Total Cells Counted 100
[2019-07-28] MEDS: BUDESONIDE 0.5 MG/2 ML NEB RESP TX SCH ×2 (07:21→20:18)
[2019-07-28] MEDS: SUCRALFATE 1 GM/10 ML UDCUP NG SCH ×4 (08:37→22:05)
[2019-07-28] MEDS: DOCUSATE SODIUM 100 MG CAPSULE PO SCH (08:37)
[2019-07-28] MEDS: GLIMEPIRIDE 4 MG TABLET PO SCH ×2 (08:38→17:05)
[2019-07-28] MEDS: POLYETHYLENE GLYCOL POWDER 17 GM PACK PO SCH (08:38)
[2019-07-28] MEDS: FUROSEMIDE 40 MG/4 ML VIAL IV SCH ×2 (08:38→15:38)
[2019-07-28] MEDS: PANTOPRAZOLE 40 MG VIAL IV SCH ×2 (08:40→22:05)
[2019-07-28] MEDS: methylPREDNISolone SOD SUC 40 MG/1 ML VIAL IV SCH ×2 (08:43→22:04)
[2019-07-28] MEDS: FLUCONAZOLE 40 MG/ML 35 ML/BOTTLE PER TUBE SCH (08:45)
[2019-07-28] MEDS: METOPROLOL TARTRATE 25 MG TABLET NG SCH ×2 (08:45→22:04)
[2019-07-28] MEDS: MULTIVITAMIN LIQUID (CENTRUM) 60 ML BOTTLE PO SCH (08:46)
[2019-07-28] MEDS: CLOTRIMAZOLE/BETAMETHASONE CREAM 15 GM TUBE TOP SCH ×2 (08:46→22:08)
[2019-07-28] MEDS: cefTRIAXone 1,000 MG in SYRINGE 1 EACH IV SCH (11:08)
[2019-07-28] MEDS: INSULIN GLARGINE 100 UNIT/ML SUBCUT SCH (22:06)
[2019-07-28] MEDS: LACTOBACILLUS ACIDOPHILUS/BULGARICUS CHEW TABLET PO SCH (22:11)
[2019-07-29] MEDS: INSULIN REGULAR 100 UNIT/ML SUBCUT SCH ×6 (01:31→22:13)
[2019-07-29 05:35] LABS: Basophils # 0.1 10*3/uL (0.0-0.2); Basophils % 0.1 % (0.0-0.8); Immature Granulocytes % 1.7 %; Lymphocytes # 0.4 10*3/uL (1.4-4.0); Lymphocytes % 1.2 % (21.2-54.2); Mean Corpuscular HGB Conc 27.6 GM/DL (32-36); Mean Corpuscular Volume 73.7 FL (87-102); Monocytes % 1.7 % (1.7-12.7); NRBC # 0.03 10*3/uL; Neutrophils % 95.3 % (38.7-73.9); Platelet Count 128 T/CUMM (130-400); Red Blood Count 4.38 MC/CUMM (3.8-5.5); Red Cell Distribution Width 31.4 % (9.3-17.3); White Blood Count 34.9 T/CUMM (4-12)
[2019-07-29 05:57] LABS: Calcium 8.2 MG/DL (8.5-10.1); Osmolality,Calculated 330.4 MOS/KG (273-304)
[2019-07-29 06:01] LABS: Prealbumin 15.5 MG/DL (20-40)
[2019-07-29] MEDS: CLINDAMYCIN 300 MG CAPSULE PO SCH ×3 (06:02→17:21)
[2019-07-29 06:12] LABS: Hematocrit 32.2 VOL% (42.0-52.0); Hemoglobin 8.9 GM/DL (14.0-18.0)
[2019-07-29 06:22] LABS: Hypochromasia 1+; Segmented Neutrophils 98 % (50-85); Target Cells Few; Total Cells Counted 100
[2019-07-29] MEDS: BUDESONIDE 0.5 MG/2 ML NEB RESP TX SCH ×2 (07:05→19:09)
[2019-07-29] MEDS: METOPROLOL TARTRATE 25 MG TABLET NG SCH ×2 (09:26→22:13)
[2019-07-29] MEDS: GLIMEPIRIDE 4 MG TABLET PO SCH ×2 (09:26→17:21)
[2019-07-29] MEDS: SUCRALFATE 1 GM/10 ML UDCUP NG SCH ×4 (09:26→22:13)
[2019-07-29] MEDS: LACTOBACILLUS ACIDOPHILUS/BULGARICUS CHEW TABLET PO SCH ×2 (09:27→22:21)
[2019-07-29] MEDS: FUROSEMIDE 40 MG/4 ML VIAL IV SCH ×2 (09:27→15:04)
[2019-07-29] MEDS: FLUCONAZOLE 40 MG/ML 35 ML/BOTTLE PER TUBE SCH (09:27)
[2019-07-29] MEDS: methylPREDNISolone SOD SUC 40 MG/1 ML VIAL IV SCH (09:30)
[2019-07-29] MEDS: PANTOPRAZOLE 40 MG VIAL IV SCH (09:32)
[2019-07-29] MEDS: POLYETHYLENE GLYCOL POWDER 17 GM PACK PO SCH (09:34)
[2019-07-29] MEDS: MULTIVITAMIN LIQUID (CENTRUM) 60 ML BOTTLE PO SCH (09:35)
[2019-07-29] MEDS: DOCUSATE SODIUM 100 MG CAPSULE PO SCH (09:35)
[2019-07-29] MEDS: CLOTRIMAZOLE/BETAMETHASONE CREAM 15 GM TUBE TOP SCH ×2 (09:35→22:15)
[2019-07-29] MEDS: cefTRIAXone 1,000 MG in SYRINGE 1 EACH IV SCH (11:19)
[2019-07-29] MEDS: FAMOTIDINE 8 MG/ML 50 ML/BOTTLE NG SCH (22:10)
[2019-07-29] MEDS: GLIMEPIRIDE 2 MG TABLET NG SCH (22:13)
[2019-07-29] MEDS: INSULIN GLARGINE 100 UNIT/ML SUBCUT SCH (22:14)
[2019-07-30] MEDS: CLINDAMYCIN 300 MG CAPSULE PO SCH ×3 (00:17→17:09)
[2019-07-30] MEDS: INSULIN REGULAR 100 UNIT/ML SUBCUT SCH ×6 (03:39→22:00)
[2019-07-30 06:04] LABS: Calcium 8.3 MG/DL (8.5-10.1); Osmolality,Calculated 341.9 MOS/KG (273-304)
[2019-07-30] MEDS: BUDESONIDE 0.5 MG/2 ML NEB RESP TX SCH ×2 (07:19→19:09)
[2019-07-30] MEDS: GLIMEPIRIDE 2 MG TABLET NG SCH ×2 (09:03→21:48)
[2019-07-30] MEDS: SUCRALFATE 1 GM/10 ML UDCUP NG SCH ×4 (09:03→21:48)
[2019-07-30] MEDS: METOPROLOL TARTRATE 25 MG TABLET NG SCH ×2 (09:04→21:48)
[2019-07-30] MEDS: DOCUSATE SODIUM 100 MG CAPSULE PO SCH (09:04)
[2019-07-30] MEDS: POLYETHYLENE GLYCOL POWDER 17 GM PACK PO SCH (09:04)
[2019-07-30] MEDS: FAMOTIDINE 8 MG/ML 50 ML/BOTTLE NG SCH ×2 (09:04→21:48)
[2019-07-30] MEDS: FLUCONAZOLE 40 MG/ML 35 ML/BOTTLE PER TUBE SCH (11:02)
[2019-07-30] MEDS: LACTOBACILLUS ACIDOPHILUS/BULGARICUS CHEW TABLET PO SCH ×2 (11:02→21:56)
[2019-07-30] MEDS: CLOTRIMAZOLE/BETAMETHASONE CREAM 15 GM TUBE TOP SCH ×2 (11:02→21:47)
[2019-07-30] MEDS: MULTIVITAMIN LIQUID (CENTRUM) 60 ML BOTTLE PO SCH (11:02)
[2019-07-30] MEDS: cefTRIAXone 1,000 MG in SYRINGE 1 EACH IV SCH (13:20)
[2019-07-30] MEDS: LACTATED RINGERS 1,000 ML IV SCH (18:19)
[2019-07-30] MEDS: INSULIN GLARGINE 100 UNIT/ML SUBCUT SCH (21:56)
[2019-07-31] MEDS: CLINDAMYCIN 300 MG CAPSULE PO SCH ×4 (00:15→17:01)
[2019-07-31] MEDS: INSULIN REGULAR 100 UNIT/ML SUBCUT SCH ×5 (04:54→20:55)
[2019-07-31] MEDS: LACTATED RINGERS 1,000 ML IV SCH (06:23)
[2019-07-31] MEDS: BUDESONIDE 0.5 MG/2 ML NEB RESP TX SCH ×2 (07:39→19:58)
[2019-07-31] MEDS: SUCRALFATE 1 GM/10 ML UDCUP NG SCH ×4 (09:48→20:54)
[2019-07-31] MEDS: DOCUSATE SODIUM 100 MG CAPSULE PO SCH (09:48)
[2019-07-31] MEDS: GLIMEPIRIDE 2 MG TABLET NG SCH ×2 (09:48→20:54)
[2019-07-31] MEDS: MULTIVITAMIN LIQUID (CENTRUM) 60 ML BOTTLE PO SCH (09:48)
[2019-07-31] MEDS: FLUCONAZOLE 40 MG/ML 35 ML/BOTTLE PER TUBE SCH (09:49)
[2019-07-31] MEDS: CLOTRIMAZOLE/BETAMETHASONE CREAM 15 GM TUBE TOP SCH ×2 (09:49→20:55)
[2019-07-31] MEDS: POLYETHYLENE GLYCOL POWDER 17 GM PACK PO SCH (09:49)
[2019-07-31] MEDS: METOPROLOL TARTRATE 25 MG TABLET NG SCH ×2 (09:49→20:54)
[2019-07-31] MEDS: LACTOBACILLUS ACIDOPHILUS/BULGARICUS CHEW TABLET PO SCH ×2 (09:52→20:55)
[2019-07-31] MEDS: FAMOTIDINE 8 MG/ML 50 ML/BOTTLE NG SCH ×2 (09:52→20:55)
[2019-07-31] MEDS: SODIUM CHLORIDE 0.9% 1,000 ML IV SCH (17:25)
[2019-07-31] MEDS: ALBUTEROL/IPRATROPIUM 3 ML NEB RESP TX PRN (19:58)
[2019-07-31] MEDS: INSULIN GLARGINE 100 UNIT/ML SUBCUT SCH (20:55)
[2019-08-01] MEDS: INSULIN REGULAR 100 UNIT/ML SUBCUT SCH ×6 (00:22→20:56)
[2019-08-01] MEDS: CLINDAMYCIN 300 MG CAPSULE PO SCH ×4 (00:22→17:32)
[2019-08-01] MEDS: SODIUM CHLORIDE 0.9% 1,000 ML IV SCH ×2 (05:58→20:57)
[2019-08-01 06:32] LABS: Basophils % 0.1 % (0.0-0.8); Eosinophils % 0.1 % (0.00-10.9); Hematocrit 29.8 VOL% (42.0-52.0); Hemoglobin 7.9 GM/DL (14.0-18.0); Immature Granulocytes % 1.6 %; Lymphocytes # 1.4 10*3/uL (1.4-4.0); Lymphocytes % 5.3 % (21.2-54.2); Mean Corpuscular HGB Conc 26.5 GM/DL (32-36); Mean Corpuscular Volume 76.8 FL (87-102); Monocytes % 5.5 % (1.7-12.7); NRBC # 0.03 10*3/uL; Neutrophils % 87.4 % (38.7-73.9); Platelet Count 190 T/CUMM (130-400); Red Blood Count 3.88 MC/CUMM (3.8-5.5); White Blood Count 25.6 T/CUMM (4-12)
[2019-08-01 06:34] LABS: Calcium 7.6 MG/DL (8.5-10.1); Osmolality,Calculated 315.3 MOS/KG (273-304)
[2019-08-01 06:38] LABS: Hypochromasia 2+; Platelet Estimate Adequate
[2019-08-01] MEDS: BUDESONIDE 0.5 MG/2 ML NEB RESP TX SCH ×2 (07:34→20:10)
[2019-08-01] MEDS: POLYETHYLENE GLYCOL POWDER 17 GM PACK PO SCH (10:34)
[2019-08-01] MEDS: GLIMEPIRIDE 2 MG TABLET NG SCH ×2 (10:34→20:56)
[2019-08-01] MEDS: DOCUSATE SODIUM 100 MG CAPSULE PO SCH (10:34)
[2019-08-01] MEDS: LACTOBACILLUS ACIDOPHILUS/BULGARICUS CHEW TABLET PO SCH ×2 (10:34→20:57)
[2019-08-01] MEDS: METOPROLOL TARTRATE 25 MG TABLET PO SCH ×3 (10:34→21:08)
[2019-08-01] MEDS: SUCRALFATE 1 GM/10 ML UDCUP NG SCH ×4 (10:34→20:56)
[2019-08-01] MEDS: INSULIN GLARGINE 100 UNIT/ML SUBCUT SCH ×2 (10:35→20:57)
[2019-08-01] MEDS: FLUCONAZOLE 40 MG/ML 35 ML/BOTTLE PER TUBE SCH (10:36)
[2019-08-01] MEDS: MULTIVITAMIN LIQUID (CENTRUM) 60 ML BOTTLE PO SCH (10:37)
[2019-08-01] MEDS: FAMOTIDINE 8 MG/ML 50 ML/BOTTLE NG SCH ×2 (10:37→20:58)
[2019-08-01] MEDS: CLOTRIMAZOLE/BETAMETHASONE CREAM 15 GM TUBE TOP SCH ×2 (10:38→20:58)
[2019-08-01] MEDS: METOPROLOL TARTRATE 25 MG TABLET NG SCH (10:44)
[2019-08-02] MEDS: INSULIN REGULAR 100 UNIT/ML SUBCUT SCH ×6 (00:20→20:23)
[2019-08-02] MEDS: CLINDAMYCIN 300 MG CAPSULE PO SCH (00:21)
[2019-08-02 06:11] LABS: Calcium 7.6 MG/DL (8.5-10.1); Osmolality,Calculated 310.3 MOS/KG (273-304)
[2019-08-02] MEDS: BUDESONIDE 0.5 MG/2 ML NEB RESP TX SCH ×2 (07:17→19:00)
[2019-08-02] MEDS: ACETAMINOPHEN 325 MG/10.15 ML UDCUP PO PRN (09:01)
[2019-08-02] MEDS: SUCRALFATE 1 GM/10 ML UDCUP NG SCH ×4 (09:01→20:22)
[2019-08-02] MEDS: POLYETHYLENE GLYCOL POWDER 17 GM PACK PO SCH (09:01)
[2019-08-02] MEDS: GLIMEPIRIDE 2 MG TABLET NG SCH ×2 (09:01→20:23)
[2019-08-02] MEDS: METOPROLOL TARTRATE 25 MG TABLET PO SCH ×3 (09:01→20:23)
[2019-08-02] MEDS: FAMOTIDINE 8 MG/ML 50 ML/BOTTLE NG SCH ×2 (09:02→20:22)
[2019-08-02] MEDS: MULTIVITAMIN LIQUID (CENTRUM) 60 ML BOTTLE PO SCH (09:02)
[2019-08-02] MEDS: INSULIN GLARGINE 100 UNIT/ML SUBCUT SCH ×2 (09:03→20:24)
[2019-08-02] MEDS: DOCUSATE SODIUM 100 MG CAPSULE PO SCH (09:03)
[2019-08-02] MEDS: CLOTRIMAZOLE/BETAMETHASONE CREAM 15 GM TUBE TOP SCH ×2 (09:03→20:25)
[2019-08-02] MEDS: LACTOBACILLUS ACIDOPHILUS/BULGARICUS CHEW TABLET PO SCH ×2 (09:04→20:23)
[2019-08-02] MEDS: SODIUM CHLORIDE 0.9% 1,000 ML IV SCH (10:13)
[2019-08-02] MEDS ORDERED: VANCOMYCIN INJ 1,000 MG in SODIUM CHLORIDE 0.9% 250 ML IV SCH (10:30)
[2019-08-02] MEDS: PIPERACILLIN/TAZOBACTAM 3,375 MG in SODIUM CHLORIDE 0.9% 100 ML IV SCH ×2 (11:55→18:12)
[2019-08-02] MEDS: VANCOMYCIN INJ 1,250 MG in SODIUM CHLORIDE 0.9% 250 ML IV SCH (15:45)
[2019-08-02] MEDS: ALBUTEROL/IPRATROPIUM 3 ML NEB RESP TX PRN (19:00)
[2019-08-03] MEDS: INSULIN REGULAR 100 UNIT/ML SUBCUT SCH ×7 (00:58→23:55)
[2019-08-03] MEDS: SODIUM CHLORIDE 0.9% 1,000 ML IV SCH ×2 (00:59→22:53)
[2019-08-03] MEDS: VANCOMYCIN INJ 1,250 MG in SODIUM CHLORIDE 0.9% 250 ML IV SCH ×2 (01:28→16:06)
[2019-08-03] MEDS: PIPERACILLIN/TAZOBACTAM 3,375 MG in SODIUM CHLORIDE 0.9% 100 ML IV SCH ×3 (03:25→18:05)
[2019-08-03] MEDS: BUDESONIDE 0.5 MG/2 ML NEB RESP TX SCH ×2 (07:13→19:30)
[2019-08-03] MEDS: FAMOTIDINE 8 MG/ML 50 ML/BOTTLE NG SCH ×2 (08:53→21:16)
[2019-08-03] MEDS: MULTIVITAMIN LIQUID (CENTRUM) 60 ML BOTTLE PO SCH (08:53)
[2019-08-03] MEDS: SUCRALFATE 1 GM/10 ML UDCUP NG SCH ×4 (08:54→21:16)
[2019-08-03] MEDS: INSULIN GLARGINE 100 UNIT/ML SUBCUT SCH ×2 (08:54→21:16)
[2019-08-03] MEDS: METOPROLOL TARTRATE 25 MG TABLET PO SCH ×3 (08:54→21:16)
[2019-08-03] MEDS: GLIMEPIRIDE 2 MG TABLET NG SCH ×2 (08:54→21:16)
[2019-08-03] MEDS: DOCUSATE SODIUM 100 MG CAPSULE PO SCH (08:54)
[2019-08-03] MEDS: LACTOBACILLUS ACIDOPHILUS/BULGARICUS CHEW TABLET PO SCH ×2 (08:55→21:22)
[2019-08-03] MEDS: POLYETHYLENE GLYCOL POWDER 17 GM PACK PO SCH (08:55)
[2019-08-03] MEDS: CLOTRIMAZOLE/BETAMETHASONE CREAM 15 GM TUBE TOP SCH ×2 (08:57→21:22)
[2019-08-03] MEDS: ACETAMINOPHEN 325 MG/10.15 ML UDCUP PO PRN (16:05)
[2019-08-04] MEDS: VANCOMYCIN INJ 1,250 MG in SODIUM CHLORIDE 0.9% 250 ML IV SCH ×2 (01:54→18:23)
[2019-08-04] MEDS: PIPERACILLIN/TAZOBACTAM 3,375 MG in SODIUM CHLORIDE 0.9% 100 ML IV SCH ×2 (03:52→09:56)
[2019-08-04] MEDS: SODIUM CHLORIDE 0.9% 1,000 ML IV SCH ×2 (04:18→18:23)
[2019-08-04] MEDS: INSULIN REGULAR 100 UNIT/ML SUBCUT SCH ×5 (04:25→20:49)
[2019-08-04 05:56] LABS: Osmolality,Calculated 292.3 MOS/KG (273-304)
[2019-08-04 06:22] LABS: Basophils % 0.1 % (0.0-0.8); Eosinophils % 0.1 % (0.00-10.9); Immature Granulocytes % 1.5 %; Immature Granulocytes Absolute 0.32 #; Lymphocytes # 2.1 10*3/uL (1.4-4.0); Lymphocytes % 9.5 % (21.2-54.2); Mean Corpuscular HGB Conc 26.3 GM/DL (32-36); Mean Corpuscular Volume 77.9 FL (87-102); Monocytes % 5.5 % (1.7-12.7); NRBC # 0.03 10*3/uL; Neutrophils % 83.3 % (38.7-73.9); Platelet Count 172 T/CUMM (130-400); Red Blood Count 4.11 MC/CUMM (3.8-5.5); White Blood Count 21.6 T/CUMM (4-12)
[2019-08-04 06:24] LABS: Hemoglobin 8.4 GM/DL (14.0-18.0)
[2019-08-04 06:28] LABS: Anisocytosis 1+; Band Neutrophils 4 % (0-10); Eosinophils 1 % (0-10); Hypochromasia 1+; Lymphocytes 13 % (20-55); Microcytosis 1+; Segmented Neutrophils 76 % (50-85); Total Cells Counted 100
[2019-08-04 06:29] LABS: Platelet Estimate Adequate
[2019-08-04] MEDS: BUDESONIDE 0.5 MG/2 ML NEB RESP TX SCH ×2 (07:20→19:26)
[2019-08-04] MEDS: SUCRALFATE 1 GM/10 ML UDCUP NG SCH ×4 (09:55→20:48)
[2019-08-04] MEDS: INSULIN GLARGINE 100 UNIT/ML SUBCUT SCH ×2 (09:56→20:49)
[2019-08-04] MEDS: POLYETHYLENE GLYCOL POWDER 17 GM PACK PO SCH (09:56)
[2019-08-04] MEDS: METOPROLOL TARTRATE 25 MG TABLET PO SCH ×3 (09:56→20:48)
[2019-08-04] MEDS: GLIMEPIRIDE 2 MG TABLET NG SCH ×2 (09:58→20:48)
[2019-08-04] MEDS: DOCUSATE SODIUM 100 MG CAPSULE PO SCH (10:07)
[2019-08-04] MEDS: CLOTRIMAZOLE/BETAMETHASONE CREAM 15 GM TUBE TOP SCH ×2 (10:08→20:50)
[2019-08-04] MEDS: LACTOBACILLUS ACIDOPHILUS/BULGARICUS CHEW TABLET PO SCH ×2 (10:12→20:48)
[2019-08-04] MEDS: MULTIVITAMIN LIQUID (CENTRUM) 60 ML BOTTLE PO SCH (10:12)
[2019-08-04] MEDS: FAMOTIDINE 8 MG/ML 50 ML/BOTTLE NG SCH ×2 (10:12→20:47)
[2019-08-05] MEDS: INSULIN REGULAR 100 UNIT/ML SUBCUT SCH ×6 (00:13→20:36)
[2019-08-05 06:12] LABS: Calcium 7.9 MG/DL (8.5-10.1); Osmolality,Calculated 290.3 MOS/KG (273-304); Prealbumin 7.8 MG/DL (20-40)
[2019-08-05] MEDS: BUDESONIDE 0.5 MG/2 ML NEB RESP TX SCH ×2 (07:26→19:40)
[2019-08-05] MEDS: ALBUTEROL/IPRATROPIUM 3 ML NEB RESP TX PRN (07:26)
[2019-08-05] MEDS: METOPROLOL TARTRATE 25 MG TABLET PO SCH ×3 (10:46→20:38)
[2019-08-05] MEDS: GLIMEPIRIDE 2 MG TABLET NG SCH ×2 (10:46→20:35)
[2019-08-05] MEDS: INSULIN GLARGINE 100 UNIT/ML SUBCUT SCH ×2 (10:46→20:36)
[2019-08-05] MEDS: CLOTRIMAZOLE/BETAMETHASONE CREAM 15 GM TUBE TOP SCH ×2 (10:47→20:38)
[2019-08-05] MEDS: POLYETHYLENE GLYCOL POWDER 17 GM PACK PO SCH (10:47)
[2019-08-05] MEDS: SUCRALFATE 1 GM/10 ML UDCUP NG SCH ×4 (10:47→20:35)
[2019-08-05] MEDS: DOCUSATE SODIUM 100 MG CAPSULE PO SCH (10:54)
[2019-08-05] MEDS: LACTOBACILLUS ACIDOPHILUS/BULGARICUS CHEW TABLET PO SCH ×2 (10:54→20:35)
[2019-08-05] MEDS: FUROSEMIDE 20 MG/2 ML VIAL IV ONE ×2 (14:12→14:20)
[2019-08-05] MEDS: FAMOTIDINE 8 MG/ML 50 ML/BOTTLE NG SCH ×2 (14:12→20:34)
[2019-08-05] MEDS: MULTIVITAMIN LIQUID (CENTRUM) 60 ML BOTTLE PO SCH (17:21)
[2019-08-06] MEDS: INSULIN REGULAR 100 UNIT/ML SUBCUT SCH ×6 (00:33→20:47)
[2019-08-06] MEDS: ACETAMINOPHEN 325 MG/10.15 ML UDCUP PO PRN (05:22)
[2019-08-06] MEDS: ALBUTEROL/IPRATROPIUM 3 ML NEB RESP TX PRN ×2 (07:21→19:30)
[2019-08-06] MEDS: BUDESONIDE 0.5 MG/2 ML NEB RESP TX SCH ×2 (07:21→19:30)
[2019-08-06] MEDS: MULTIVITAMIN LIQUID (CENTRUM) 60 ML BOTTLE PO SCH (09:19)
[2019-08-06] MEDS: GLIMEPIRIDE 2 MG TABLET NG SCH ×2 (09:27→20:48)
[2019-08-06] MEDS: SUCRALFATE 1 GM/10 ML UDCUP NG SCH ×4 (09:27→20:48)
[2019-08-06] MEDS: INSULIN GLARGINE 100 UNIT/ML SUBCUT SCH ×2 (09:27→20:47)
[2019-08-06] MEDS: LACTOBACILLUS ACIDOPHILUS/BULGARICUS CHEW TABLET PO SCH ×2 (09:27→20:48)
[2019-08-06] MEDS: FAMOTIDINE 8 MG/ML 50 ML/BOTTLE NG SCH ×2 (09:28→20:47)
[2019-08-06] MEDS: DOCUSATE SODIUM 100 MG CAPSULE PO SCH (09:28)
[2019-08-06] MEDS: METOPROLOL TARTRATE 25 MG TABLET PO SCH ×3 (09:28→20:48)
[2019-08-06] MEDS: CLOTRIMAZOLE/BETAMETHASONE CREAM 15 GM TUBE TOP SCH ×2 (09:28→20:48)
[2019-08-06] MEDS: POLYETHYLENE GLYCOL POWDER 17 GM PACK PO SCH (09:30)
[2019-08-07] MEDS: INSULIN REGULAR 100 UNIT/ML SUBCUT SCH ×7 (00:12→23:36)
[2019-08-07] MEDS: BUDESONIDE 0.5 MG/2 ML NEB RESP TX SCH ×2 (07:53→19:27)
[2019-08-07] MEDS: INSULIN GLARGINE 100 UNIT/ML SUBCUT SCH ×2 (10:02→21:12)
[2019-08-07] MEDS: MULTIVITAMIN LIQUID (CENTRUM) 60 ML BOTTLE PO SCH (10:03)
[2019-08-07] MEDS: SUCRALFATE 1 GM/10 ML UDCUP NG SCH ×4 (10:03→21:12)
[2019-08-07] MEDS: FAMOTIDINE 8 MG/ML 50 ML/BOTTLE NG SCH ×2 (10:03→21:13)
[2019-08-07] MEDS: DOCUSATE SODIUM 100 MG CAPSULE PO SCH (10:03)
[2019-08-07] MEDS: LACTOBACILLUS ACIDOPHILUS/BULGARICUS CHEW TABLET PO SCH ×2 (10:03→21:12)
[2019-08-07] MEDS: CLOTRIMAZOLE/BETAMETHASONE CREAM 15 GM TUBE TOP SCH ×2 (10:04→21:13)
[2019-08-07] MEDS: POLYETHYLENE GLYCOL POWDER 17 GM PACK PO SCH (10:04)
[2019-08-07] MEDS: METOPROLOL TARTRATE 25 MG TABLET PO SCH ×3 (10:07→21:12)
[2019-08-07] MEDS: GLIMEPIRIDE 2 MG TABLET NG SCH ×2 (10:07→21:12)
[2019-08-08] MEDS: INSULIN REGULAR 100 UNIT/ML SUBCUT SCH ×3 (03:38→11:49)
[2019-08-08] MEDS: BUDESONIDE 0.5 MG/2 ML NEB RESP TX SCH ×2 (07:12→20:49)
[2019-08-08] MEDS: POLYETHYLENE GLYCOL POWDER 17 GM PACK PO SCH (09:58)
[2019-08-08] MEDS: GLIMEPIRIDE 2 MG TABLET NG SCH (09:58)
[2019-08-08] MEDS: INSULIN GLARGINE 100 UNIT/ML SUBCUT SCH (09:58)
[2019-08-08] MEDS: CLOTRIMAZOLE/BETAMETHASONE CREAM 15 GM TUBE TOP SCH ×2 (09:59→21:52)
[2019-08-08] MEDS: METOPROLOL TARTRATE 25 MG TABLET PO SCH (09:59)
[2019-08-08] MEDS: SUCRALFATE 1 GM/10 ML UDCUP NG SCH ×2 (09:59→11:47)
[2019-08-08] MEDS: LACTOBACILLUS ACIDOPHILUS/BULGARICUS CHEW TABLET PO SCH (10:17)
[2019-08-08] MEDS: FAMOTIDINE 8 MG/ML 50 ML/BOTTLE NG SCH (10:17)
[2019-08-08] MEDS: DOCUSATE SODIUM 100 MG CAPSULE PO SCH (10:18)
[2019-08-08] MEDS: MULTIVITAMIN LIQUID (CENTRUM) 60 ML BOTTLE PO SCH (10:54)
[2019-08-09 06:44] LABS: Calcium 8.3 MG/DL (8.5-10.1); Osmolality,Calculated 287.5 MOS/KG (273-304)
[2019-08-09] MEDS: CLOTRIMAZOLE/BETAMETHASONE CREAM 15 GM TUBE TOP SCH (08:02)
[2019-08-09] MEDS: BUDESONIDE 0.5 MG/2 ML NEB RESP TX SCH (08:08)
[2019-08-09 13:33] VITALS: BP 156/65
== END 2019-08-09 13:25 | disposition hospice, inpatient (51) | DRG 871 ==
LOC: N.ED 18:29 → N.CC 20:10 → SUATTDRO 21:37 → N.EDINP 21:37 → N.CC 21:41 → N.5E 07-26 18:44 → UNDODISIN 08-09 13:25
PROVIDERS: ADMIT Family Medicine; ATTEND Internal Medicine